=== PATIENT | male | born 1960 | race African-American/Black ===

== ENCOUNTER 2022-11-09 15:02 | Inpatient (IN) | payer MEDICARE, MEDICAID, SELFPAY ==
--- NOTE | ~2022-11-09 | XR_ITS ---
Portable chest x-ray Comparison: None Clinical History: Dizziness, weakness Findings: Right-sided PICC line in satisfactory position. Lungs are clear, without focal consolidati on or pleural effusion. Cardiomediastinal silhouette is prominent, with pacemaker device in place. B ones and soft tissues are unremarkable. Impression: Clear lungs. Right-sided PICC line and pacemaker device. Reviewed, dictated and finalized at location . ECT SCIENTIST Impression: Clear lungs. Right-sided PICC line and pacemaker device.
[2022-11-09 14:57] VITALS: BP 90/63; PULSE 80; RESP 18; TEMP 36.6; O2SAT 100
--- NOTE | 2022-11-09 15:22 | ECG_ITS ---
Measurements Intervals [place] Rate: 80 P: 252 CA: 178 QRS: -78 QRSD: 240 T: 90 QT: 517 QTc: 597 Interpretive Statements ELECTRONIC ATRIAL PACEMAKER ELECTRONIC VENTRICULAR PACEMAKER ATYPICAL ECG Electronically Signed On 11-09-2022 15:38:11 LOSS CLAIM CLERK by Roby Lyons M.D.
--- NOTE | 2022-11-09 15:23 | ED.WEAKNESS ---
HPI - Weakness General Chief complaint: Weakness Stated complaint: low bp, dizzy Time Seen by Provider: 11/09/22 15:06 History of Present Illness HPI Narrative: Patient is a 62-year-old male with a history of heart failure, cardiomyopathy status post ICD, COPD, gout, hypertension, hyperlipidemia presenting with hypotension. Patient states that he was discharged from [facility] approximately 4 days ago to a nursing facility. States that he had been at [facility] due to fluid overload and bacteremia. He was discharged to his nursing facility with a PICC line in place for continued IV antibiotics. States that he has been taking his Bumex as prescribed but he has had decreased urinary output. Today, he felt lightheaded so his nurse checked his blood pressure and found him to be hypotensive in the 80s over 60s. Patient states that he has had a couple of episodes of dyspnea but he denies any chest pain or palpitations. Denies recent fevers or chills, cough, abdominal pain, nausea or vomiting, diarrhea, dysuria. States that he has gained approximately 10 to 12 pounds in the last 4 days. Related Data Home Medications Medication Instructions Recorded Confirmed acetaminophen 500 mg capsule 1,000 mg PO Q6H PRN Pain 11/10/22 11/10/22 amiodarone 200 mg tablet 200 mg PO DAILY 11/10/22 11/10/22 apixaban 5 mg tablet (Eliquis) 5 mg PO BID 11/10/22 11/10/22 atorvastatin 40 mg tablet 40 mg PO DAILY 11/10/22 11/10/22 bumetanide 2 mg tablet 2 mg PO BID 11/10/22 11/10/22 ceftriaxone 2 gram intravenous 2 g IV DAILY 11/10/22 11/10/22 piggyback dapagliflozin 10 mg tablet 10 mg PO DAILY 11/10/22 11/10/22 ([facility]) docusate sodium 100 mg capsule 100 mg PO BID 11/10/22 11/10/22 folic acid 1 mg tablet 1 mg PO DAILY 11/10/22 11/10/22 gabapentin 400 mg capsule 400 mg PO TID 11/10/22 11/10/22 heparin (porcine) 10 unit/mL in 10 unit IV DAILY 11/10/22 11/10/22 0.9 % sodium chloride intravenous kit hydralazine 10 mg tablet 10 mg PO TID 11/10/22 11/10/22 insulin lispro 100 unit/mL 1 sliding scale dose subcut 11/10/22 11/10/22 subcutaneous solution USEASDIRECTD lidocaine 4 % topical patch 1 patch topical DAILY 11/10/22 11/10/22 metoprolol succinate 25 mg 25 mg PO DAILY 11/10/22 11/10/22 tablet,extended release 24 hr pantoprazole 40 mg tablet,delayed 40 mg PO DAILY 11/10/22 11/10/22 release polyethylene glycol 3350 17 gram 17 g PO DAILY 11/10/22 11/10/22 oral powder packet spironolactone 25 mg tablet 25 mg PO DAILY 11/10/22 11/10/22 Allergies Allergy/AdvReac Type Severity Reaction Status Date / Time lisinopril Allergy Unknown Verified 11/09/22 18:26 Review of Systems Review of Systems: All systems reviewed & are unremarkable except as noted in HPI and below PMFSH Past Medical History Medical History COPD (chronic obstructive pulmonary disease) Social History Social History Years smoked: 38 Smoking status: Former smoker Tobacco type: cigarettes Alcohol intake: former Substance use: former Substance use type: does not use Lack of Transportation: No Lack of Food: Never True Current Housing: I Have Housing Concerned About Future Housing: YES Difficulty Paying Gas/Electric Bills: No Difficulty Paying for Meds: No Currently Unemployed: No Education: High School Diploma/GED Difficulty w/ Childcare or Family Care: No Spiritual care concerns: No Exam Narrative: GENERAL: Well-appearing, well-nourished, and in no acute distress. HEAD: Normocephalic, atraumatic. EYES: PERRLA and EOMI. ENT: Nares clear, no rhinorrhea or epistaxis. Mucous membranes moist. NECK: Supple. CHEST: Clear to auscultation. No respiratory distress. HEART: Regular rate and rhythm. Normal peripheral pulses. ABDOMEN: Soft, nontender, nondistended, normal active bowel sounds. EXTREMITIES: Normal range of motion. Bilateral pitting edema to
[2022-11-09] MEDS: ALBUMIN HUMAN 25% 25 GM/100 ML 100 ML IVPB ×2 (16:40→18:25)
[2022-11-09] MEDS: SODIUM CHLORIDE 0.9% IV 500 ML 999 ML IV CONT ×2 (16:41→18:25)
[2022-11-09 16:44] LABS: Basophils Percent Auto 0.6 % (0.2-1.2); Eosinophils Percent Auto 0.6 % (0-4.4); Hematocrit 28.5 % (42.0-52.0); Hemoglobin 8.6 g/dL (14.0-18.0); Immature Granulocyte Absolute 0.02 K/mm3 (0.00-0.031); Immature Granulocyte Percent A 0.4 % (0-0.5); Lymphocytes Absolute Auto 0.43 K/mm3 (0.9-3.2); Lymphocytes Percent Auto 8.1 % (18.3-44.2); Mean Corpuscular HGB Conc 30.2 g/dl (32-36); Mean Corpuscular Volume 79.4 fl (80-100); Mean Platelet Volume 8.5 fl (7.4-10.4); Monocytes Absolute Auto 0.8 K/mm3 (0.1-0.6); Monocytes Percent Auto 14.4 % (2.6-8.5); Neutrophils Percent Auto 75.9 % (45.5-73.1); Platelet Count Result 259 k/mm3 (150-375); Red Blood Count 3.59 M/mm3 (4.6-6.20); Red Cell Distribution Width 25.3 % (11.5-14.5); White Blood Count 5.3 K/mm3 (4.5-10.0)
[2022-11-09 16:45] LABS: Add Urine Microscopic? YES; Appearance Urine Clear (Clear); Bilirubin Urine Negative (Negative); Blood Urine Negative (Negative); Color Urine Light Yellow (Yellow); Glucose Urine UA 1+ mg/dL (Negative); Ketones Urine Negative (Negative); Leukocyte Esterase Ur Negative LEU/UL (Negative); Nitrate Urine Negative (Negative); Protein Urine Negative (Negative); Specific Grav Ur <= 1.005 (1.001-1.035); Urobilinogen Urine 0.2 mg/dL (<2.0)
[2022-11-09 16:52] LABS: Mucus Urine Rare /lpf; WBC Urine 0-3 /hpf
[2022-11-09 16:54] LABS: Lactic Acid Reflex 1.1 mmol/L (0.7-2.0)
[2022-11-09 16:55] LABS: INR 1.6; Prothrombin Time 18.4 Seconds (11.1-14.7)
[2022-11-09 16:56] LABS: Partial Thromboplastin Time 38.1 SECONDS (22.3-36.8)
[2022-11-09 17:08] LABS: Anisocytosis 2+ (NORMAL); Platelet Estimate Adequate (Adequate)
[2022-11-09 17:09] LABS: Macrocytosis 1+ (NORMAL); Schistocytes None Seen (NORMAL)
[2022-11-09 17:10] LABS: Alanine Aminotransferase 12 U/L (6-50); Albumin Level 3.4 g/dL (3.5-5.1); Alkaline Phosphatase 200 U/L (38-126); Anion Gap 4 mmol/L (8-16); Aspartate Amino Transferase 26 U/L (17-59); Bilirubin,Total 0.3 mg/dL (0.2-1.3); Blood Urea Nitrogen 60 mg/dL (9-20); Calcium 8.4 mg/dL (8.4-10.2); Carbon Dioxide 32 mmol/L (22-30); Chloride 93 mmol/L (98-107); Estimated CRCL calculation 48 ml/min; Estimated Glomerular Filt Rate 42; Glucose 114 mg/dL (65-110); Hypochromasia 1+ (NORMAL); Sodium 129 mmol/L (137-145)
[2022-11-09 17:23] LABS: Influenza A QL RT-PCR Negative (Negative); Influenza B QL RT-PCR Negative (Negative); NT Pro B Type Natriuretic Pept 3220 pg/mL (5-100); SARS-CoV-2 RNA PCR Negative
[2022-11-09 17:25] LABS: Troponin I 0.028 ng/mL (0.000-0.034)
[2022-11-09 19:32] VITALS: BP 100/73; PULSE 80; RESP 22; O2SAT 96
[2022-11-09 20:11] LABS: Troponin I 0.028 ng/mL (0.000-0.034)
[2022-11-09 20:12] VITALS: BP 95/67; PULSE 80; RESP 18
--- NOTE | 2022-11-09 21:27 | PM.IMHP ---
H&P: HPI History of Present Illness Date/Time: 11/09/22 21:27 Chief Complaint: Weakness and lightheadedness. Narrative: Patient is a 62-year-old gentleman with a past medical history including but not limited to heart failure, cardiomyopathy status post ICD, COPD, gout, hypertension, hyperlipidemia presenting with hypotension.? Patient states that he was recently discharged from [place] approximately 4 days ago to a nursing facility.? Patient has a history of chronic heart failure and reports that he had been at [facility] due to fluid overload and bacteremia.? He was discharged to his nursing facility with a PICC line in place for continued IV antibiotics.?Earlier the patient had been taking his Bumex as prescribed but he has noticed decreased urinary output.? Today, he felt lightheaded so his nurse checked his blood pressure and found him to be hypotensive in the 80s over 60s.? Patient states that he has had a couple of episodes of dyspnea but he denies any chest pain or palpitations.? He denies recent fevers or chills, cough, abdominal pain, nausea or vomiting, diarrhea, dysuria.?He reports that he has gained approximately 10 to 12 pounds in the last 4 days. On arrival into the emergency department his vital signs were a temperature of 97.8?, pulse rate 80, respiratory rate 18, blood pressure 90/63, pulse oximetry of 100% on room air. On physical exam the patient displays bilateral pitting edema to his knees. His lungs are clear to auscultation without crackles or rhonchi. He CBC shows a WBC of 5.3, hemoglobin 8.6, hematocrit 28.5 and a platelet count of 259. Coagulation panel shows a PT of 18.4, INR 1.6 and APTT 38.1. His chemistry shows a sodium of 129, potassium 4, chloride 93, bicarbonate 32, BUN 60 creatinine 2.0 for an estimated GFR of 42. Blood glucose is 114. Lactic acid is 1.1. Calcium is 8.4. BNP is elevated at 3 220. Albumin is 3.4 and total protein 7.0. Troponin is 0.028 at 4:34 a.m. and 7:31 respectively. Urinalysis positive for 1+ glucose and 3-4 highland casts; nitrate and leukocyte esterase are negative. Chest x-ray shows clear lungs without focal consolidation or pleural effusion. Cardio mid-title silhouette is prominent, with pacemaker device in place. Bone and soft tissues are unremarkable. Right-sided PICC line in satisfactory position. AICD device. Patient receive a total of 1 L of normal saline and then 2 infusions of 100 mL of albumin followed by Levophed. His blood pressure improved from 90/63 to 95/67. The hospital medicine service was consulted and patient will be admitted to the step-down unit for clinical monitoring and further management. Review of Systems Review of Systems: All systems reviewed & are unremarkable except as noted in HPI and below Constitutional: Constitutional: Reports as per HPI, Denies body ache(s), Denies fatigue and Denies weakness Eyes: Eyes: Reports as per HPI and Denies blurry vision ENT: Reports system reviewed and no additional complaints, except as documented, Reports as per HPI, Denies dysphagia, Denies epistaxis and Denies nasal discharge Cardiovascular: Cardiovascular: Reports as per HPI, Denies chest pain, Reports lightheadedness and Denies palpitations Respiratory: Respiratory: Reports as per HPI, Denies cough and Denies dyspnea Gastrointestinal: Gastrointestinal: Reports as per HPI, Denies diarrhea, Denies nausea and Denies vomiting Genitourinary: Genitourinary: Reports no additional male genitourinary complaints, Reports as per HPI and Denies urinary incontinence [facility] Past Medical History Medical History (Updated 11/10/22 @ 04:28 by Nova Ingram MD) COPD (chronic obstructive pulmonary disease) Social History Social History Years smoked: 38 Smoking status: Former smoker Tobacco type: cigarettes Alcohol intake: former Substance use: former Substance use type: does not use Lack of Transportation: No
[2022-11-09 22:38] VITALS: BP 74/51; PULSE 80
[2022-11-09] MEDS: NOREPINEPHRINE 8 MG/D5W 250 ML 8 MG/250 ML BAG 9.38 MG IV CONT (22:38)
--- NOTE | 2022-11-09 23:00 | PC.NURSE ---
DR BARILLAS SPOKE WITH DR MAY AT THIS TIME. PT CHANGED TO ICU D/T REQUIRING PRESSORS.
[2022-11-09 23:09] VITALS: BP 96/64; PULSE 80
[2022-11-09 23:35] VITALS: BP 102/72; PULSE 80
[2022-11-10] VITALS (80 sets, daily range): BP systolic 70–107; BP diastolic 54–75; PULSE 80–88; RESP 14–30; TEMP 36.6–37.1; O2SAT 95–100; BMI 35.6
--- NOTE | 2022-11-10 01:58 | PC.NURSE ---
This patient, Guille Moeller, was admitted to Intensive Care Unit-8 at 2330 on 11/09/22. Patient/family oriented to hospital policies and general routines including ID bracelet, bed and alarms, visiting hours, pain management, procedures, bathroom and other care routines, personal items, smoking policy, room service/diet, and visiting hours. Information on how to activate the Rapid Response Team has been discussed. Patient/Family are encouraged to report perceived risks to care and to ask questions if they do not understand what they are told or what they should do.
[2022-11-10] MEDS: CENTRAL LINE FLUSH 10 ML IV PUSH ×3 (07:04→18:01)
[2022-11-10] MEDS: PANTOPRAZOLE 40 MG TABLET PO (09:50)
[2022-11-10] MEDS: cefTRIAXone 2 GM in SODIUM CHLORIDE 0.9% IV 100 ML 200 ML IVPB (09:50)
[2022-11-10] MEDS: EMPAGLIFLOZIN 25 MG TABLET PO (09:50)
[2022-11-10] MEDS: FOLIC ACID 1 MG TABLET PO (09:50)
[2022-11-10] MEDS: DOCUSATE SODIUM 100 MG CAPSULE PO (09:50)
[2022-11-10] MEDS: APIXABAN 5 MG TABLET PO ×2 (10:05→20:58)
[2022-11-10] MEDS: ATORVASTATIN 40 MG TABLET PO (10:05)
--- NOTE | 2022-11-10 10:28 | WPDCNINT ---
Assessment and Plan Assessment and plan (1) Hypotension due to hypovolemia: Code(s): I95.89 - Other hypotension; E86.1 - Hypovolemia Status: Acute Assessment and Plan: Patient present with hypotension which is likely secondary to his blood pressure medications and hypovolemia from diuresis Patient was given 1 L fluid and some albumin started on vasopressors due to concerns to avoid any volume overload Now Levophed has been weaned off. Will continue monitor at this time in the ICU He is not on any IV fluid Lactic acid was negative WBC was normal Patient is asymptomatic Hence not on any antibiotics apart from Rocephin that he was on (2) CHF (congestive heart failure): Code(s): I50.9 - Heart failure, unspecified Status: Acute Assessment and Plan: Recent CHF exacerbation treated with optimization of diuretic regimen leading to hypotension and decreased urine output. Hold cardiac medications and diuretics at this time (3) Hyponatremia: Code(s): E87.1 - Hypo-osmolality and hyponatremia Status: Acute Assessment and Plan: Hyponatremia likely secondary to over diuretic; this reflects appropriate ADH release is causing water retention in the setting of hypotensive episode. Monitor serial serum sodium. Patient received 1 L normal saline in the ED. Hyponatremia is likely to improve and or resolve as hemodynamic status stabilizes. 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 Continue amiodarone 200 mg PO daily and apixaban 5 mg PO BID. IN the setting of hypotension, hold bumetanide hydralazine metoprolol and Aldactone Obtain records from [facility] (5) Hyperlipidemia: Code(s): E78.5 - Hyperlipidemia, unspecified Status: Acute Assessment and Plan: Continue atorvastatin. (6) Bacteremia: Code(s): R78.81 - Bacteremia Status: Acute Assessment and Plan: Patient had some sort of bacteremia at [facility]. He states that extensive workup was done and no source was found including endocarditis. He was supposed to be on antibiotics until November 22 I will repeat blood cultures since patient has PICC line Obtain records from [facility] Continue Rocephin for now. Will broaden antibiotic coverage if there is any objective evidence for new infection (7) Diabetes mellitus: Code(s): E11.9 - Type 2 diabetes mellitus without complications Status: Acute Assessment and Plan: Continue Jardiance Add SSI (8) Elevated serum creatinine: Code(s): R79.89 - Other specified abnormal findings of blood chemistry Status: Acute Assessment and Plan: Patient has history of chronic kidney disease has baseline creatinine is unknown. Presented with creatinine of 2.0 Recheck creatinine this morning Check CK and urine electrolytes Bumex on hold Obtain records from [facility] Monitor urine output electrolytes and creatinine Plan DVT prophylaxis myc: Patient is currently on Eliquis Code status is full code. Railroad Operator Consult Note Consult date: 11/10/22 Reason for consult: Hypertension HPI: Guille Moeller is a 62 year old male with past medical history of congestive heart failure, cardiomyopathy status post AICD, COPD, gout, hypertension, hyperlipidemia was sent from alf with hypotension.? Patient states that he was recently discharged from [place] approximately 4 days ago to a nursing facility. He has a PICC line and was supposed to be on IV antibiotics for bacteremia. Patient states extensive workup was done at [facility] and they could not find the source of infection. He was supposed to take antibiotics till 22 of November. He states that day before yesterday and yesterday his blood pressure was low in 80s systolic at alf. He states that he felt at baseline wi
[2022-11-10 11:56] LABS: Hematocrit 28.1 % (42.0-52.0); Hemoglobin 8.3 g/dL (14.0-18.0); Mean Corpuscular HGB Conc 29.5 g/dl (32-36); Mean Corpuscular Hemoglobin 23.6 pg (26-34); Mean Corpuscular Volume 80.1 fl (80-100); Mean Platelet Volume 8.4 fl (7.4-10.4); Platelet Count Result 217 k/mm3 (150-375); Red Blood Count 3.51 M/mm3 (4.6-6.20); Red Cell Distribution Width 25.8 % (11.5-14.5)
[2022-11-10 12:04] LABS: Glucose Point of Care 146 mg/dl (65-105)
[2022-11-10 12:05] LABS: Anion Gap 5 mmol/L (8-16); Blood Urea Nitrogen 56 mg/dL (9-20); Calcium 8.2 mg/dL (8.4-10.2); Carbon Dioxide 30 mmol/L (22-30); Chloride 94 mmol/L (98-107); Creatine Kinase 36 U/L (55-170); Estimated CRCL calculation 63 ml/min; Estimated Glomerular Filt Rate 58; Glucose 109 mg/dL (65-110); Potassium 4.1 mmol/L (3.4-5.0); Sodium 129 mmol/L (137-145)
[2022-11-10 12:18] LABS: Basophils Percent Manual 2 % (0-1); Eosinophils Absolute Manual 0.05 K/mm3 (0.02-0.5); Eosinophils Percent Manual 1 % (0-4); Lymphocytes Absolute Manual 0.35 K/mm3 (1.1-4.5); Monocytes Percent Manual 8 % (3-9); Neutrophils Percent Manual 82 % (46-73); Platelet Estimate Adequate (Adequate); Total Cells Counted 100
[2022-11-10 12:19] LABS: Hypochromasia 2+ (NORMAL); Schistocytes Rare (NORMAL); Stomatocytes 2+ (NORMAL)
[2022-11-10 16:20] LABS: Creatinine Urine 74.7 mg/dL
[2022-11-10 16:23] LABS: Sodium Urine Random 17 meq/L
[2022-11-10 17:49] LABS: Glucose Point of Care 97 mg/dl (65-105)
[2022-11-10] MEDS: ACETAMINOPHEN 325 MG TABLET 650 MG PO (19:18)
[2022-11-10] MEDS: LIDOCAINE 5% PATCH 2 PATCH TRANSDERM (20:59)
[2022-11-10 21:45] LABS: Glucose Point of Care 115 mg/dl (65-105)
[2022-11-11] VITALS (12 sets, daily range): BP systolic 84–106; BP diastolic 57–68; PULSE 77–81; RESP 14–18; TEMP 36.4–36.7; O2SAT 95–99
[2022-11-11] MEDS: CENTRAL LINE FLUSH 10 ML IV PUSH ×4 (00:18→20:53)
[2022-11-11 05:03] LABS: Mean Corpuscular HGB Conc 29.6 g/dl (32-36); Mean Corpuscular Hemoglobin 23.7 pg (26-34); Mean Corpuscular Volume 79.9 fl (80-100); Mean Platelet Volume 8.5 fl (7.4-10.4); Platelet Count Result 203 k/mm3 (150-375); Red Blood Count 3.38 M/mm3 (4.6-6.20); Red Cell Distribution Width 25.8 % (11.5-14.5); White Blood Count 4.1 K/mm3 (4.5-10.0)
[2022-11-11 05:10] LABS: Alanine Aminotransferase 12 U/L (6-50); Albumin Level 3.3 g/dL (3.5-5.1); Alkaline Phosphatase 180 U/L (38-126); Anion Gap 6 mmol/L (8-16); Aspartate Amino Transferase 24 U/L (17-59); Bilirubin,Total 0.6 mg/dL (0.2-1.3); Blood Urea Nitrogen 48 mg/dL (9-20); Calcium 8.5 mg/dL (8.4-10.2); Carbon Dioxide 30 mmol/L (22-30); Chloride 98 mmol/L (98-107); Estimated CRCL calculation 63 ml/min; Estimated Glomerular Filt Rate 58; Glucose 101 mg/dL (65-110); Magnesium 2.4 mg/dL (1.6-2.3); Potassium 3.8 mmol/L (3.4-5.0); Sodium 134 mmol/L (137-145)
[2022-11-11] MEDS: CENTRAL LINE FLUSH 20 ML IV PUSH (05:21)
[2022-11-11 09:05] LABS: Glucose Point of Care 103 mg/dl (65-105)
[2022-11-11] MEDS: PANTOPRAZOLE 40 MG TABLET PO (09:52)
[2022-11-11] MEDS: DOCUSATE SODIUM 100 MG CAPSULE PO ×2 (09:52→20:49)
[2022-11-11] MEDS: FOLIC ACID 1 MG TABLET PO (09:52)
[2022-11-11] MEDS: EMPAGLIFLOZIN 25 MG TABLET PO (09:52)
[2022-11-11] MEDS: APIXABAN 5 MG TABLET PO ×2 (09:52→18:10)
[2022-11-11] MEDS: cefTRIAXone 2 GM in SODIUM CHLORIDE 0.9% IV 100 ML 200 ML IVPB (09:53)
[2022-11-11] MEDS: polyethylene glycoL 3350 17 GM POWD.PACK PO (09:58)
--- NOTE | 2022-11-11 10:33 | PM.IMPN ---
Progress Note: A&P Assessment and Plan (1) Hypotension due to hypovolemia: Code(s): I95.89 - Other hypotension; E86.1 - Hypovolemia Status: Acute Assessment and Plan: Patient present with hypotension which is likely secondary to his blood pressure medications and hypovolemia from diuresis with Bumex, patient was previously on Lasix but discharged on Bumex from [facility] per patient Patient was given 1 L fluid and some albumin started on vasopressors due to concerns to avoid any volume overload, Levophed now weaned off Blood pressure improving, 105/61 today (2) CHF (congestive heart failure): Code(s): I50.9 - Heart failure, unspecified Status: Acute Assessment and Plan: Recent CHF exacerbation treated with optimization of diuretic regimen leading to hypotension and decreased urine output. Hold cardiac medications and diuretics at this time, restart when BP able to tolerate (3) Hyponatremia: Code(s): E87.1 - Hypo-osmolality and hyponatremia Status: Acute Assessment and Plan: Hyponatremia likely secondary to over diuretic; this reflects appropriate ADH release is causing water retention in the setting of hypotensive episode. 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 Continue amiodarone 200 mg PO daily and apixaban 5 mg PO BID. In the setting of hypotension likely secondary to over-diuresis, hold bumetanide, hydralazine, metoprolol and Aldactone Obtain records from [facility] (5) Hyperlipidemia: Code(s): E78.5 - Hyperlipidemia, unspecified Status: Acute Assessment and Plan: Continue atorvastatin. (6) Bacteremia: Code(s): R78.81 - Bacteremia Status: Acute Assessment and Plan: Patient had bacteremia of unknown etiology at [facility], per patient, he was on IV antibiotics until November 22 via PICC line Obtain records from [facility] Continue Rocephin for now Follow-up repeat blood cultures (7) Diabetes mellitus: Code(s): E11.9 - Type 2 diabetes mellitus without complications Status: Acute Assessment and Plan: Continue Jardiance Accu-Cheks, sliding scale insulin (8) Elevated serum creatinine: Code(s): R79.89 - Other specified abnormal findings of blood chemistry Status: Acute Assessment and Plan: Improving off diuretics with off IV fluids, monitor Plan DVT prophylaxis with Eliquis GI prophylaxis with PPI Code status full code Subjective Date/time seen: 11/11/22 10:34 Interval history: No overnight events noted. No chest pain or shortness of breath. No nausea, vomiting or diarrhea. No fevers or chills. Review of Systems Review of Systems: 12 point review of systems was assessed and was negative except as noted in the HPI Exam Narrative: General: No acute distress, alert and oriented per baseline HEENT: Atraumatic, normocephalic, mucous membranes moist CV: Regular rate and rhythm, S1, S2 Lungs: Clear to auscultation bilaterally, no rales or crackles noted, no wheezes, good air entry Abdomen: Soft, nontender, nondistended Extremities: Normal to inspection, 2+ pitting edema noted bilaterally Skin: No rashes noted, no lesions or wounds seen Psych: Euthymic, normal affect Objective Data Vital Signs Vital Signs: Vital Signs - 24 hr 11/10/22 12:00 11/10/22 12:00 11/10/22 10:38 Temperature Pulse Rate 80 80 80 Respiratory Rate 22 H 17 Blood Pressure Pulse Oximetry 99 97 Oxygen Delivery Room Air 11/10/22 10:45 11/10/22 11:00 11/10/22 11:01 Temperature Pulse Rate 80 80 80 Respiratory Rate 19 18 28 H Blood Pressure 90/62 L Pulse Oxi
--- NOTE | 2022-11-11 10:50 | PC.NURSE ---
call to pharm for missing a.m meds
--- NOTE | 2022-11-11 12:08 | P.CDI_ITS ---
CDI Query Clarification Request unknown <Perlita Kerr DO - Last Filed: 11/21/22 18:04> Clarified Diagnosis Clarified Diagnosis: Elevated BNP on 11/09/22 lab work. Documented history of CHF. CHF noted on the assessment and plan. Please specify type and acuity of heart failure if known. * Acute * Chronic * Acute on Chronic * Unknown * Systolic * Diastolic * Combined Systolic and Diastolic * Unknown <Sully Snyder RN - Last Filed: 11/11/22 12:09>
--- NOTE | 2022-11-11 12:08 | WPDCDIQUERY2 ---
CDI Query Clarification Request unknown <Perlita Kerr DO - Last Filed: 11/21/22 18:04> Clarified Diagnosis Clarified Diagnosis: Elevated BNP on 11/09/22 lab work. Documented history of CHF. CHF noted on the assessment and plan. Please specify type and acuity of heart failure if known. Acute Chronic Acute on Chronic Unknown Systolic Diastolic Combined Systolic and Diastolic Unknown <Sully Snyder RN - Last Filed: 11/11/22 12:09>
[2022-11-11 12:33] LABS: Glucose Point of Care 101 mg/dl (65-105)
[2022-11-11] MEDS: AMIODARONE HCL 200 MG TABLET PO (12:58)
[2022-11-11] MEDS: ATORVASTATIN 40 MG TABLET PO (12:58)
[2022-11-11 17:29] LABS: Glucose Point of Care 96 mg/dl (65-105)
[2022-11-11] MEDS: ACETAMINOPHEN 500 MG TABLET 1000 MG PO (18:09)
[2022-11-11] MEDS: GABAPENTIN 400 MG CAPSULE PO (18:10)
[2022-11-11] MEDS: LIDOCAINE 5% PATCH 2 PATCH TRANSDERM (20:49)
[2022-11-11 21:01] LABS: Glucose Point of Care 116 mg/dl (65-105)
[2022-11-12] VITALS (13 sets, daily range): BP systolic 99–109; BP diastolic 55–69; PULSE 66–80; RESP 18–20; TEMP 35.8–37.2; O2SAT 93–100
[2022-11-12] MEDS: CENTRAL LINE FLUSH 20 ML IV PUSH (05:09)
[2022-11-12] MEDS: CENTRAL LINE FLUSH 10 ML IV PUSH ×3 (05:09→20:07)
[2022-11-12 05:30] LABS: Hematocrit 27.4 % (42.0-52.0); Hemoglobin 8.2 g/dL (14.0-18.0); Mean Corpuscular HGB Conc 29.9 g/dl (32-36); Mean Corpuscular Hemoglobin 23.6 pg (26-34); Mean Corpuscular Volume 78.7 fl (80-100); Mean Platelet Volume 9.3 fl (7.4-10.4); Platelet Count Result 221 k/mm3 (150-375); Red Blood Count 3.48 M/mm3 (4.6-6.20); Red Cell Distribution Width 26.1 % (11.5-14.5); White Blood Count 4.4 K/mm3 (4.5-10.0)
[2022-11-12 05:39] LABS: Alanine Aminotransferase 11 U/L (6-50); Albumin Level 3.3 g/dL (3.5-5.1); Alkaline Phosphatase 167 U/L (38-126); Anion Gap 4 mmol/L (8-16); Aspartate Amino Transferase 23 U/L (17-59); Bilirubin,Total 0.5 mg/dL (0.2-1.3); Blood Urea Nitrogen 42 mg/dL (9-20); Calcium 8.4 mg/dL (8.4-10.2); Carbon Dioxide 30 mmol/L (22-30); Chloride 95 mmol/L (98-107); Estimated CRCL calculation 67 ml/min; Estimated Glomerular Filt Rate > 60; Glucose 98 mg/dL (65-110); Magnesium 2.3 mg/dL (1.6-2.3); Potassium 3.6 mmol/L (3.4-5.0); Sodium 129 mmol/L (137-145)
[2022-11-12 08:23] LABS: Glucose Point of Care 106 mg/dl (65-105)
[2022-11-12] MEDS: EMPAGLIFLOZIN 25 MG TABLET PO (09:03)
[2022-11-12] MEDS: APIXABAN 5 MG TABLET PO ×2 (09:03→17:19)
[2022-11-12] MEDS: GABAPENTIN 400 MG CAPSULE PO ×3 (09:03→17:19)
[2022-11-12] MEDS: cefTRIAXone 2 GM in SODIUM CHLORIDE 0.9% IV 100 ML 200 ML IVPB (09:03)
[2022-11-12] MEDS: FOLIC ACID 1 MG TABLET PO (09:03)
[2022-11-12] MEDS: PANTOPRAZOLE 40 MG TABLET PO (09:03)
[2022-11-12] MEDS: ATORVASTATIN 40 MG TABLET PO (09:03)
[2022-11-12] MEDS: AMIODARONE HCL 200 MG TABLET PO (09:03)
--- NOTE | 2022-11-12 09:45 | PM.IMPN ---
Progress Note: A&P Assessment and Plan (1) Hypotension due to hypovolemia: Code(s): I95.89 - Other hypotension; E86.1 - Hypovolemia Status: Acute Assessment and Plan: Patient present with hypotension which is likely secondary to his blood pressure medications and hypovolemia from diuresis with Bumex, patient was previously on Lasix but discharged on Bumex from [facility] per patient Patient was given 1 L fluid and some albumin started on vasopressors due to concerns to avoid any volume overload, Levophed now weaned off Review records from [facility] when available Appreciate cardio consult, pending 11/12: Blood pressure improving but still quite low, will give lasix 40 mg po today and monitor response (2) CHF (congestive heart failure): Code(s): I50.9 - Heart failure, unspecified Status: Acute Assessment and Plan: Recent CHF exacerbation treated with optimization of diuretic regimen leading to hypotension and decreased urine output. Cont home meds of amiodarone 200 mg daily, eliquis, farxiga 10 mg (jardiance 25 mg) Hold aldactone 25 mg daily, metoprolol succinate 25 mg daily, hydralazine 10 mg TID due to cont hypotension 11/12: Start lasix 40 mg po today (3) Hyponatremia: Code(s): E87.1 - Hypo-osmolality and hyponatremia Status: Acute Assessment and Plan: Hyponatremia likely secondary to over diuretic; this reflects appropriate ADH release is causing water retention in the setting of hypotensive episode. 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 Continue amiodarone 200 mg PO daily and apixaban 5 mg PO BID. In the setting of hypotension likely secondary to over-diuresis, hold bumetanide, hydralazine, metoprolol and Aldactone Obtain records from [facility] (5) Hyperlipidemia: Code(s): E78.5 - Hyperlipidemia, unspecified Status: Acute Assessment and Plan: Continue atorvastatin. (6) Bacteremia: Code(s): R78.81 - Bacteremia Status: Acute Assessment and Plan: Patient had bacteremia of unknown etiology at [facility], per patient, he was on IV antibiotics until November 22 via PICC line Obtain records from [facility] Continue Rocephin 2g daily for now Follow-up repeat blood cultures (7) Diabetes mellitus: Code(s): E11.9 - Type 2 diabetes mellitus without complications Status: Acute Assessment and Plan: Continue Jardiance Accu-Cheks, sliding scale insulin (8) Elevated serum creatinine: Code(s): R79.89 - Other specified abnormal findings of blood chemistry Status: Acute Assessment and Plan: Stable Plan DVT prophylaxis with Eliquis GI prophylaxis with PPI Code status full code Subjective Date/time seen: 11/12/22 09:45 Interval history: No overnight events noted. No chest pain or shortness of breath. No nausea, vomiting or diarrhea. No fevers or chills. Review of Systems Review of Systems: 12 point review of systems was assessed and was negative except as noted in the HPI Exam Narrative: General: No acute distress, alert and oriented per baseline HEENT: Atraumatic, normocephalic, mucous membranes moist CV: Regular rate and rhythm, S1, S2 Lungs: Clear to auscultation bilaterally, no rales or crackles noted, no wheezes, good air entry Abdomen: Soft, nontender, nondistended Extremities: Normal to inspection, 2+ pitting edema noted bilaterally Skin: No rashes noted, no lesions or wounds seen Psych: Euthymic, normal affect Objective Data
[2022-11-12] MEDS: FUROSEMIDE 40 MG TABLET PO (09:47)
[2022-11-12 11:50] LABS: Glucose Point of Care 115 mg/dl (65-105)
--- NOTE | 2022-11-12 12:29 | PM.DS ---
DS: Admitting Diagnosis Discharge Date 11/13/22 Admitting Diagnosis weakness, hypotension DS: Discharge Diagnosis Discharge Diagnosis (1) Hypotension due to hypovolemia: Code(s): I95.89 - Other hypotension; E86.1 - Hypovolemia Status: Acute Assessment and Plan: Patient present with hypotension which is likely secondary to his blood pressure medications and hypovolemia from diuresis with Bumex, patient was previously on Lasix but discharged on Bumex from [facility] per patient Patient was given 1 L fluid and some albumin started on vasopressors due to concerns to avoid any volume overload, Levophed now weaned off Review records from [facility] when available Appreciate cardio consult, pending 11/12: Blood pressure improving but still quite low, will give lasix 40 mg po today and monitor response 11/13: BP stable on bumex 2 mg po daily, jardiance 25 mg po daily, hydralazine 10 mg po TID, metoprolol succinate 25 mg po daily, aldactone 25 mg po daily, anticipate d/c home if ok with cardio (2) CHF (congestive heart failure): Code(s): I50.9 - Heart failure, unspecified Status: Acute Assessment and Plan: Recent CHF exacerbation treated with optimization of diuretic regimen leading to hypotension and decreased urine output. Cont home meds of amiodarone 200 mg daily, eliquis, farxiga 10 mg (jardiance 25 mg) Hold aldactone 25 mg daily, metoprolol succinate 25 mg daily, hydralazine 10 mg TID due to cont hypotension 11/12: Start lasix 40 mg po today 11/13: Lasix switched to bumex by cardio yesterday, first dose this am, good UOP, BP stable, monitor (3) Hyponatremia: Code(s): E87.1 - Hypo-osmolality and hyponatremia Status: Acute Assessment and Plan: Hyponatremia likely secondary to over diuretic; this reflects appropriate ADH release is causing water retention in the setting of hypotensive episode. 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 Continue amiodarone 200 mg PO daily and apixaban 5 mg PO BID. In the setting of hypotension likely secondary to over-diuresis, hold bumetanide, hydralazine, metoprolol and Aldactone Obtain records from [facility] (5) Hyperlipidemia: Code(s): E78.5 - Hyperlipidemia, unspecified Status: Acute Assessment and Plan: Continue atorvastatin. (6) Bacteremia: Code(s): R78.81 - Bacteremia Status: Acute Assessment and Plan: Patient had bacteremia of unknown etiology at [facility], per patient, he was on IV antibiotics until November 22 via PICC line Obtain records from [facility] Continue Rocephin 2g daily until Nov 22 Follow-up repeat blood cultures (7) Diabetes mellitus: Code(s): E11.9 - Type 2 diabetes mellitus without complications Status: Acute Assessment and Plan: Continue Jardiance Accu-Cheks, sliding scale insulin (8) Elevated serum creatinine: Code(s): R79.89 - Other specified abnormal findings of blood chemistry Status: Acute Assessment and Plan: Stable (9) Anemia: Code(s): D64.9 - Anemia, unspecified Status: Acute Assessment and Plan: 11/13: Hgb down to 7.7 today, baseline around 8-9, monitor Plan DVT prophylaxis with Eliquis GI prophylaxis with PPI Code status full code DS: Summary Hospital Course Hospital Course: 62 y/o M with PMH HF p/w weakness and found to be profoundly hypotensive and dehydrated. He was admitted and taken to the ICu for gentle hydration a
--- NOTE | 2022-11-12 15:25 | PM.CNCAR ---
Assessment and Plan Assessment and plan (1) Cardiomyopathy: Code(s): I42.9 - Cardiomyopathy, unspecified Status: Acute Plan this is a 62-year-old man who appears to have a longstanding nonischemic cardiomyopathy who is on the above-described heart failure regimen as well as a chronically implanted ICD / pacemaker device. He came into the hospital because of symptomatic hypotension. Laboratory data at that time was compatible with a moderate pre renal state. That has improved with some hydration and withholding of his heart failure medication. In this situation my principal recommendation would be to reduce the dose of his Bumex but we cannot reasonably hold all of his heart failure medications. I will recommend Bumex at 2 mg daily rather than 40 mg of furosemide which is a more drastic reduction in his diuretic regimen. His beta-dayami hydralazine and spironolactone should be continued I will reorder those as well. If he is asymptomatic like this discharge back to his nursing facility is reasonable. He should follow-up with his heart failure physician [facility] sooner than later. Flynn Betancourt MD [facility] History of Present Illness History of Present Illness Consult date/time: 11/12/22 15:25 Consult reason: congestive heart failure Reason For Visit: Shock Narrative: this is a 62-year-old man I am seeing at the request of the hospitalist to assist with medical optimization for left ventricular systolic dysfunction. The patient is feeling well this afternoon and does not have any complaints. According to the patient he is a longstanding patient of the Cardiology Department at [facility] and appears to have diagnosis of a nonischemic cardiomyopathy. He states his heart has been weak for about 9 or 10 years and he has been managed down at that institution. I do not believe there is any evidence that he has been hospitalized here at [facility] in the past. She was apparently recently hospitalized at [place] for treatment of his heart failure as well as bacteremia and has a PICC line for all along a course of IV antibiotics. He states that was today and November 22 and then he was to be discharged back to his home. At his nursing facility his blood pressure was noted to be low with systolic pressures in the 80s and he was lightheaded so he was sent to this hospital's emergency room for admission. That was on the afternoon of November 09. He was given some fluid in the ICU and his blood pressure improved and he was sent to the floor. His medical regimen according to the record consists of amiodarone 200 mg daily, apixaban 5 mg twice daily, atorvastatin 40 mg daily, Bumex 2 mg b.i.d., hydralazine 10 mg 3 times daily and metoprolol succinate 25 mg daily as well as spironolactone 25 mg daily. According to the nursing staff his hydralazine and beta-dayami have not been resumed he has been given Lasix 40 mg daily. There is an order in the chart for him to be discharged pending my approval. Once again I have not previously been involved in this patient's case. Review of Systems Constitutional: Constitutional: Reports no additional constitutional complaints Eyes: Eyes: Reports no additional eye complaints ENT: Reports system reviewed and no additional complaints, except as documented Cardiovascular: Cardiovascular: Reports as per HPI Respiratory: Respiratory: Reports no additional respiratory complaints Gastrointestinal: Gastrointestinal: Reports no additional gastrointestinal complaints Musculoskeletal: Musculoskeletal: Reports no additional musculoskeletal complaints Integumentary/Breasts: Skin/Breast: Reports system reviewed and no additional complaints, except as docu Neurologic: Reports as per HPI Endocrine: Endocrine: Reports no additional endocrine complaints Hematologic/Lymphatic: Hematologic/Lymphatic: Reports no additional hematologic/lymphatic complaints Allergic/Immunologic: Allergic/Immunologic: R
[2022-11-12 16:47] LABS: Glucose Point of Care 99 mg/dl (65-105)
[2022-11-12] MEDS: hydrALAZINE 10 MG TABLET PO (17:19)
[2022-11-12 21:11] LABS: Glucose Point of Care 127 mg/dl (65-105)
[2022-11-13] VITALS (9 sets, daily range): BP systolic 98–120; BP diastolic 50–73; PULSE 78–96; RESP 16; TEMP 36.3–36.9; O2SAT 95–99
[2022-11-13] MEDS: CENTRAL LINE FLUSH 10 ML IV PUSH (05:19)
[2022-11-13 05:44] LABS: Hematocrit 26.2 % (42.0-52.0); Hemoglobin 7.7 g/dL (14.0-18.0); Mean Corpuscular HGB Conc 29.4 g/dl (32-36); Mean Corpuscular Hemoglobin 23.3 pg (26-34); Mean Corpuscular Volume 79.2 fl (80-100); Mean Platelet Volume 9.2 fl (7.4-10.4); Platelet Count Result 200 k/mm3 (150-375); Red Blood Count 3.31 M/mm3 (4.6-6.20); White Blood Count 4.3 K/mm3 (4.5-10.0)
[2022-11-13 06:00] LABS: Alanine Aminotransferase 12 U/L (6-50); Alkaline Phosphatase 169 U/L (38-126); Anion Gap 4 mmol/L (8-16); Aspartate Amino Transferase 20 U/L (17-59); Bilirubin,Total 0.5 mg/dL (0.2-1.3); Blood Urea Nitrogen 36 mg/dL (9-20); Calcium 7.9 mg/dL (8.4-10.2); Carbon Dioxide 31 mmol/L (22-30); Chloride 97 mmol/L (98-107); Estimated CRCL calculation 64 ml/min; Estimated Glomerular Filt Rate 58; Glucose 96 mg/dL (65-110); Magnesium 2.3 mg/dL (1.6-2.3); Potassium 3.8 mmol/L (3.4-5.0); Sodium 132 mmol/L (137-145)
[2022-11-13] MEDS: BUMETANIDE 1 MG TABLET 2 MG PO (08:34)
[2022-11-13] MEDS: hydrALAZINE 10 MG TABLET PO ×2 (08:35→12:13)
[2022-11-13] MEDS: GABAPENTIN 400 MG CAPSULE PO ×2 (08:35→12:10)
[2022-11-13] MEDS: METOPROLOL SUCCINATE EXT REL 25 MG TABCR PO (08:35)
[2022-11-13] MEDS: SPIRONOLACTONE 25 MG TABLET PO (08:35)
[2022-11-13] MEDS: AMIODARONE HCL 200 MG TABLET PO (08:35)
[2022-11-13] MEDS: ATORVASTATIN 40 MG TABLET PO (08:36)
[2022-11-13] MEDS: PANTOPRAZOLE 40 MG TABLET PO (08:36)
[2022-11-13] MEDS: polyethylene glycoL 3350 17 GM POWD.PACK PO (08:36)
[2022-11-13] MEDS: APIXABAN 5 MG TABLET PO (08:36)
[2022-11-13] MEDS: DOCUSATE SODIUM 100 MG CAPSULE PO ×2 (08:37→12:11)
[2022-11-13] MEDS: cefTRIAXone 2 GM in SODIUM CHLORIDE 0.9% IV 100 ML 200 ML IVPB (08:38)
[2022-11-13 08:53] LABS: Glucose Point of Care 105 mg/dl (65-105)
--- NOTE | 2022-11-13 09:44 | PM.IMPN ---
Progress Note: A&P Assessment and Plan (1) Hypotension due to hypovolemia: Code(s): I95.89 - Other hypotension; E86.1 - Hypovolemia Status: Acute Assessment and Plan: Patient present with hypotension which is likely secondary to his blood pressure medications and hypovolemia from diuresis with Bumex, patient was previously on Lasix but discharged on Bumex from [facility] per patient Patient was given 1 L fluid and some albumin started on vasopressors due to concerns to avoid any volume overload, Levophed now weaned off Review records from [facility] when available Appreciate cardio consult, pending 11/12: Blood pressure improving but still quite low, will give lasix 40 mg po today and monitor response 11/13: BP stable on bumex 2 mg po daily, jardiance 25 mg po daily, hydralazine 10 mg po TID, metoprolol succinate 25 mg po daily, aldactone 25 mg po daily, anticipate d/c home if ok with cardio (2) CHF (congestive heart failure): Code(s): I50.9 - Heart failure, unspecified Status: Acute Assessment and Plan: Recent CHF exacerbation treated with optimization of diuretic regimen leading to hypotension and decreased urine output. Cont home meds of amiodarone 200 mg daily, eliquis, farxiga 10 mg (jardiance 25 mg) Hold aldactone 25 mg daily, metoprolol succinate 25 mg daily, hydralazine 10 mg TID due to cont hypotension 11/12: Start lasix 40 mg po today 11/13: Lasix switched to bumex by cardio yesterday, first dose this am, good UOP, BP stable, monitor (3) Hyponatremia: Code(s): E87.1 - Hypo-osmolality and hyponatremia Status: Acute Assessment and Plan: Hyponatremia likely secondary to over diuretic; this reflects appropriate ADH release is causing water retention in the setting of hypotensive episode. 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 Continue amiodarone 200 mg PO daily and apixaban 5 mg PO BID. In the setting of hypotension likely secondary to over-diuresis, hold bumetanide, hydralazine, metoprolol and Aldactone Obtain records from [facility] (5) Hyperlipidemia: Code(s): E78.5 - Hyperlipidemia, unspecified Status: Acute Assessment and Plan: Continue atorvastatin. (6) Bacteremia: Code(s): R78.81 - Bacteremia Status: Acute Assessment and Plan: Patient had bacteremia of unknown etiology at [facility], per patient, he was on IV antibiotics until November 22 via PICC line Obtain records from [facility] Continue Rocephin 2g daily until Nov 22 Follow-up repeat blood cultures (7) Diabetes mellitus: Code(s): E11.9 - Type 2 diabetes mellitus without complications Status: Acute Assessment and Plan: Continue Jardiance Accu-Cheks, sliding scale insulin (8) Elevated serum creatinine: Code(s): R79.89 - Other specified abnormal findings of blood chemistry Status: Acute Assessment and Plan: Stable (9) Anemia: Code(s): D64.9 - Anemia, unspecified Status: Acute Assessment and Plan: 11/13: Hgb down to 7.7 today, baseline around 8-9, monitor Plan DVT prophylaxis with Eliquis GI prophylaxis with PPI Code status full code Subjective Date/time seen: 11/13/22 09:44 Interval history: No overnight events noted. No chest pain or shortness of breath. No nausea, vomiting or diarrhea. No fevers or chills. Exam Narrative: General: No acute distress, alert and oriented per baseline HEENT: Atraumatic, norm
[2022-11-13] MEDS: EMPAGLIFLOZIN 25 MG TABLET PO (12:10)
[2022-11-13] MEDS: FOLIC ACID 1 MG TABLET PO (12:10)
[2022-11-13 12:21] LABS: Glucose Point of Care 87 mg/dl (65-105)
== END 2022-11-13 14:50 | DRG 312 ==
LOC: ANHED 16:09 → ANHICU 22:31 → ANH2MED 11-11 12:43 → ANHICU 11-17 09:29
PROVIDERS: Internal Medicine; Admitting Provider Internal Medicine; Emergency Provider Emergency Medicine; PCP Internal Medicine; Visit Provider Student in an Organized Health Care Education/Training Program
DX: I95.2 Hypotension due to drugs (principal); I42.8 Other cardiomyopathies; E87.1 Hypo-osmolality and hyponatremia; E86.1 Hypovolemia; I50.9 Heart failure, unspecified; T50.905A Adverse effect of unspecified drugs, medicaments and biological substances, initial encounter; M10.9 Gout, unspecified; I11.0 Hypertensive heart disease with heart failure; E87.5 Hyperkalemia; T50.1X5A Adverse effect of loop [high-ceiling] diuretics, initial encounter; J44.9 Chronic obstructive pulmonary disease, unspecified; Z20.822 Contact with and (suspected) exposure to COVID-19; Z87.891 Personal history of nicotine dependence; Z95.810 Presence of automatic (implantable) cardiac defibrillator; Z79.899 Other long term (current) drug therapy
CPT/HCPCS: 36415; 71045; 80048; 80053; 81001; 82550; 82570; 82948; 83605; 83735; 83880; 84300; 84484; 85025; 85027; 85610; 85730; 87040; 87636; 93005; 96365; 96366; 99285; A9270; J0696; J1642; J7040; P9047